=== PATIENT | male | born 1975 | race Caucasian/White ===

== ENCOUNTER → 2019-10-12 | Outpatient (CLI) | payer OTHER ==
[~2019-10-12] MED LIST: BUPR100T8 PO; METH4TAB2 PO; METH750T87 PO; OXYC-302 PO
== END | disposition home or self-care (01) ==
LOC: STAR 11:14
PROVIDERS: ATTEND Neurological Surgery
DX: Z01.811 Encounter for preprocedural respiratory examination (principal); Z01.810 Encounter for preprocedural cardiovascular examination; Z01.812 Encounter for preprocedural laboratory examination; M48.02 Spinal stenosis, cervical region; M50.00 Cervical disc disorder with myelopathy, unspecified cervical region; R79.1 Abnormal coagulation profile; R82.90 Unspecified abnormal findings in urine; R94.31 Abnormal electrocardiogram [ECG] [EKG]; I51.7 Cardiomegaly
CPT/HCPCS: 36415; 71046; 80053; 81003; 85025; 85610; 85730; 87635; 93005

== ENCOUNTER 2019-10-14 05:12 | Inpatient (IN) | payer OTHER ==
[2019-10-12 12:13] LABS: INTERNATIONAL NORMALIZED RATIO 0.95 (0.93-1.1); PROTHROMBIN TIME 10.1 Seconds (9.6-11.5)
[2019-10-12 12:14] LABS: ALANINE AMINOTRANSFERASE 30 U/L (12-78); ALBUMIN 4.4 g/dL (3.4-5.0); ANION GAP 5 mmol/L (5-15); CHLORIDE 108 mmol/L (98-107)
[2019-10-12 12:15] LABS: BASOPHILS # (AUTO) 0.03 x10^3/uL (0-0.1); BASOPHILS % (AUTO) 0 % (0-1); EOSINOPHILS # (AUTO) 0.21 x10^3/uL (0-0.4); EOSINOPHILS % (AUTO) 3 % (1-7); LYMPHOCYTES # (AUTO) 2.44 x10^3/uL (1-3.4); LYMPHOCYTES % (AUTO) 33 % (22-44); MD NO; MEAN CORPUSCULAR HEMOGLOBIN 30.9 pg (27.5-34.5); MEAN CORPUSCULAR HGB CONC 33.8 g/dL (33.2-36.2); MEAN CORPUSCULAR VOLUME 91.6 fL (81-97); MEAN PLATELET VOLUME 9.1 fL (7.4-10.4); MONOCYTES # (AUTO) 0.57 x10^3/uL (0.2-0.8); MONOCYTES % (AUTO) 8 % (2-9); NEUTROPHILS # (AUTO) 4.25 x10^3/uL (1.8-6.8); NEUTROPHILS % (AUTO) 57 % (42-75); PLATELET COUNT 219 x10^3/uL (130-400); RED BLOOD COUNT 5.11 x10^6/uL (4.38-5.82); RED CELL DISTRIBUTION WIDTH 12.8 % (9.4-14.8)
[2019-10-12 12:17] LABS: ALKALINE PHOSPHATASE 63 U/L (45-117); BILIRUBIN,TOTAL 0.5 mg/dL (0.2-1.0); TOTAL PROTEIN 8.2 g/dL (6.4-8.2)
[2019-10-12 12:29] LABS: MICROSCOPIC NOT IND
[~2019-10-14] VITALS: Ht 185.4 cm; Wt 89.6 kg
[~2019-10-14 05:12] MED LIST changes: -METH4TAB2 PO; -METH750T87 PO; -OXYC-302 PO
[2019-10-14] MEDS ORDERED: LACTATED RINGERS 1,000 ML IV SCH (05:42)
[2019-10-14 05:57] VITALS: BP 130/87
[2019-10-14] MEDS ORDERED: CHLORHEXIDINE 15 ML UDC MM ONE (06:00)
[2019-10-14] MEDS ORDERED: FENTANYL PF 250 MCG/5ML ONE ×2 (06:20→07:26)
[2019-10-14] MEDS ORDERED: MIDAZOLAM 1 MG/ML, 2ML ONE (06:20)
[2019-10-14] MEDS ORDERED: PROPOFOL 50 ML ONE (06:22)
[2019-10-14] MEDS ORDERED: PHENYLEPHRINE 10 MG/ML ONE (06:26)
[2019-10-14] MEDS ORDERED: CEFAZOLIN 1,000 MG ONE (06:29)
[2019-10-14] MEDS ORDERED: NEOSTIGMINE 1 MG/ML, 10ML ONE (06:29)
[2019-10-14] MEDS ORDERED: PROPOFOL 10 MG/ML, 20ML ONE (06:29)
[2019-10-14] MEDS ORDERED: ROCURONIUM 10MG/ML,5ML ONE (06:29)
[2019-10-14] MEDS ORDERED: GLYCOPYRROLATE 0.2MG/1ML, 5ML ONE (06:29)
[2019-10-14] MEDS ORDERED: GABAPENTIN 300 MG CAPSULE PO ONE (06:30)
[2019-10-14] MEDS ORDERED: ACETAMINOPHEN 500 MG TABLET PO ONE (06:30)
[2019-10-14] MEDS ORDERED: BUPIVACAINE/PF-EPI 0.5% 1:200K ONE (06:31)
[2019-10-14] MEDS ORDERED: BACITRACIN 50,000 UNIT ONE (06:31)
[2019-10-14] MEDS ORDERED: morphine SULFATE 10 MG/ML, 1ML IVPush PRN (07:00)
[2019-10-14] MEDS ORDERED: LABETALOL 5MG/ML, 20ML IV PRN (07:00)
[2019-10-14] MEDS ORDERED: ONDANSETRON 2MG/ML, 2ML IVPush PRN ×2 (07:00→09:00)
[2019-10-14] MEDS ORDERED: MEPERIDINE/PF 25MG/0.5ML IVPush PRN (07:00)
[2019-10-14] MEDS ORDERED: HYDROmorphone 1 MG/ML, 1ML INJ IVPush PRN ×2 (07:00→09:00)
[2019-10-14] MEDS ORDERED: OXYcodone 5 MG/5 ML ORAL.SOL UDC PO PRN (07:00)
[2019-10-14] MEDS ORDERED: hydrALAzine 20 MG/ML, 1ML IV PRN (07:00)
[2019-10-14] MEDS ORDERED: FENTANYL PF 100 MCG/2ML ONE ×2 (08:06→09:37)
[2019-10-14] MEDS ORDERED: SENNA/DOCUSATE TABLET PO PRN (09:00)
[2019-10-14] MEDS ORDERED: HYDROcodone/APAP 5/325 TABLET PO PRN (09:00)
[2019-10-14] MEDS: D5%-0.9% NACL+KCL 20MEQ 1,000 ML IV SCH ×2 (09:00→21:00)
[2019-10-14] MEDS: BUPROPION SR 100 MG TABLET PO SCH (09:00)
[2019-10-14] MEDS ORDERED: PHARMACY MAY ADJ FOR RENAL FX MC PRN (09:00)
[2019-10-14] MEDS: SODIUM CHLORIDE FLUSH 10ML SYR IVF SCH ×2 (09:00→21:00)
[2019-10-14] MEDS ORDERED: BISACODYL 10 MG SUPP PR PRN (09:00)
[2019-10-14] MEDS ORDERED: PROMETHAZINE 25 MG/ML, 1ML IM PRN (09:00)
[2019-10-14] MEDS ORDERED: MAGNESIUM HYDROXIDE 8%, 30ML UDC PO PRN (09:00)
[2019-10-14] MEDS ORDERED: DIPHENHYDRAMINE 50 MG/ML, 1ML IVPush PRN (09:00)
[2019-10-14] MEDS ORDERED: METHOCARBAMOL 750 MG TABLET PO PRN (09:00)
[2019-10-14] MEDS ORDERED: METHOCARBAMOL 1,000 MG in DEXTROSE 5% 100 ML IV ONE (09:15)
[2019-10-14] MEDS ORDERED: PROMETHAZINE 25 MG/ML, 1ML ONE (09:19)
[2019-10-14] MEDS ORDERED: PROMETHAZINE 25 MG/ML, 1ML IVPush PRN (09:30)
[2019-10-14] MEDS: FENTANYL PF 100 MCG/2ML IV PRN ×2 (09:38→09:45)
[2019-10-14] MEDS: DEXAMETHASONE 4 MG/ML, 1ML IVPush SCH ×2 (13:27→18:37)
[2019-10-14 14:20] VITALS: BP 132/62
[2019-10-14] MEDS: CEFAZOLIN PMX 1GM/50ML 50 ML IVPB SCH ×2 (14:30→22:46)
[2019-10-14] MEDS: OXYcodone/APAP 5/325MG TABLET PO PRN ×2 (18:37→22:49)
[2019-10-14 19:15] VITALS: BP 147/77
[2019-10-15 01:07] VITALS: BP 122/73
[2019-10-15] MEDS: DEXAMETHASONE 4 MG/ML, 1ML IVPush SCH ×2 (01:15→06:19)
[2019-10-15] MEDS: D5%-0.9% NACL+KCL 20MEQ 1,000 ML IV SCH (01:16)
[2019-10-15] MEDS: OXYcodone/APAP 5/325MG TABLET PO PRN ×2 (04:51→08:32)
[2019-10-15 06:32] VITALS: BP 120/71
[2019-10-15] MEDS: SODIUM CHLORIDE FLUSH 10ML SYR IVF SCH (08:32)
[2019-10-15] MEDS: BUPROPION SR 100 MG TABLET PO SCH (08:32)
[2019-10-15] MEDS ORDERED: OXYC-302 PO (10:35)
[2019-10-15] MEDS ORDERED: METH750T87 PO (10:36)
[2019-10-15] MEDS ORDERED: METH4TAB2 PO (10:36)
== END 2019-10-15 11:33 | disposition home or self-care (01) | DRG 473 ==
LOC: ORIP 05:12 → 3N 10:17 → DCLOUNGE 10-15 11:20
PROVIDERS: ADMIT Neurological Surgery; ATTEND Neurological Surgery
PROC: 0RB30ZZ Excision of Cervical Vertebral Disc, Open Approach (ICD-10-PCS; 2019-10-14)
PROC: 0RG20A0 Fusion of 2 or more Cervical Vertebral Joints with Interbody Fusion Device, Anterior Approach, Anterior Column, Open Approach (ICD-10-PCS; principal; 2019-10-14 07:00)
DX: M50.321 Other cervical disc degeneration at C4-C5 level (principal); M48.02 Spinal stenosis, cervical region; G89.29 Other chronic pain; M50.322 Other cervical disc degeneration at C5-C6 level; M50.323 Other cervical disc degeneration at C6-C7 level
CPT/HCPCS: 36415; 71046; 72040; 80053; 81003; 85025; 85610; 85730; 87635; 93005; C1713; G0378; J0690; J1100; J2250; J2550; J2704; J2710; J3010; C1763; C1889; J2370; J2800; J7120

== ENCOUNTER 2019-10-25 09:25 | Emergency (ER) | payer OTHER ==
[~2019-10-25] VITALS: Ht 185.4 cm; Wt 86.6 kg
[2019-10-25 09:25] VITALS: BP 156/93
[~2019-10-25 09:25] MED LIST changes: +METH4TAB2 PO; +METH750T87 PO; +OXYC-302 PO
== END 2019-10-25 12:02 | disposition home or self-care (01) ==
LOC: ED 11:14
DX: S16.1XXA Strain of muscle, fascia and tendon at neck level, initial encounter (principal); M54.6 Pain in thoracic spine; Z98.1 Arthrodesis status; V49.40XA Driver injured in collision with unspecified motor vehicles in traffic accident, initial encounter; Y93.89 Activity, other specified; Y92.488 Other paved roadways as the place of occurrence of the external cause; Y99.8 Other external cause status
CPT/HCPCS: 72072; 72125; 99284

== ENCOUNTER 2020-01-09 13:01 | Emergency (ER) | payer OTHER ==
[~2020-01-09] VITALS: Ht 185.4 cm; Wt 90.4 kg
--- NOTE | 2020-01-09 13:33 | NUR ---
PT AMBULATES FROM TRIAGE TO ROOM WITH STEADY GAIT. PT IN GOWN, AWAITING ERP. PT EDUCATED ON ER PROCESS AND VERBALIZES UNDERSTANDING. CALL LIGHT IS WITHIN REACH OF PT AT THIS TIME; EMR UPDATED BASED ON PT HISTORY AND ASSESSMENT BY THIS RN.
--- NOTE | 2020-01-09 14:45 | NUR ---
PT IN MRI AT THIS TIME.
--- NOTE | 2020-01-09 15:18 | NUR ---
pt back from mri. pt vss and updated in emr at this time. pt has call light within reach.
[2020-01-09 17:08] VITALS: BP 112/77
--- NOTE | 2020-01-09 17:09 | NUR ---
pt requesting water at this time. pt educated on npo until mri resulted and verbalizes understanding. call light is within reach of pt at this time. vss and updated in emr.
--- NOTE | 2020-01-09 18:10 | NUR ---
dr bright at to discuss poc with pt.
--- NOTE | 2020-01-09 19:08 | NUR ---
TASK RN: DC EDUCATION PROVIDED, PT DEMONSTRATES UNDERSTANDING. PT AMBULATED STEADILY TO DC WITH RN
== END 2020-01-09 19:10 | disposition home or self-care (01) ==
LOC: ED 14:55
DX: M54.12 Radiculopathy, cervical region (principal); R20.0 Anesthesia of skin
CPT/HCPCS: 72050; 72141; 99284

== ENCOUNTER 2020-06-16 05:45 | Emergency (ER) | payer OTHER ==
[~2020-06-16] VITALS: Ht 185.4 cm; Wt 92.3 kg
[~2020-06-16 05:45] MED LIST changes: -OXYC-302 PO; +OXYC1TAB14 PO
[2020-06-16] MEDS ORDERED: KETOROLAC 60 MG/2 ML ONE (06:42)
[2020-06-16] MEDS ORDERED: KETOROLAC 60 MG/2 ML IM ONE (07:00)
--- NOTE | 2020-06-16 07:30 | NUR ---
MEDICATED PER MAR, PT TOLERATED WELL
[2020-06-16 07:55] VITALS: BP 117/71
--- NOTE | 2020-06-16 07:56 | NUR ---
Patient/Caregiver given discharge instructions and they have confirmed that they understand the instructions. Patient ambulatory with steady gait.
== END 2020-06-16 07:58 | disposition home or self-care (01) ==
LOC: ED 07:53
DX: S39.012A Strain of muscle, fascia and tendon of lower back, initial encounter (principal); X58.XXXA Exposure to other specified factors, initial encounter; Y93.89 Activity, other specified; Y92.89 Other specified places as the place of occurrence of the external cause; Y99.8 Other external cause status
CPT/HCPCS: 72072; 72110; 96372; 99284; J1885